=== PATIENT | female | born 2000 | race Caucasian/White ===

== ENCOUNTER 2019-04-19 10:26 | Emergency (ER) | payer OTHER ==
[2019-04-19 10:53] VITALS: BP 121/74
--- NOTE | 2019-04-19 11:46 | UC ---
Lower Extremity/Ankle HPI - HPI Summary HPI Summary: 18 year old with ankle pain . Pt rolled R ankle at [employer] practice last night. Ankle is swollen. Pt has been icing, elevating, and taking ibuprofen which helped with the pain. Exertion worsens Sx. - History of Current Complaint Chief Complaint: UCLowerExtremity Stated Complaint: RIGHT ANKLE INJURY Time Seen by Provider: 04/19/19 11:39 Hx Obtained From: Patient Hx Last Menstrual Period: 04/02/19 Onset/Duration: Sudden Onset Pain Intensity: 6 - Allergies/Home Medications Allergies/Adverse Reactions: Allergies Allergy/AdvReac Type Severity Reaction Status Date / Time No Known Allergies Allergy Verified 04/19/19 10:48 Home Medications: Home Medications Ibuprofen TAB* [Advil TAB*] 3 tab PO ONCE 04/19/19 [History Confirmed 04/19/19] Norethindrone/Eth Est 1.07/27NF [Junel .07/27 (NF)] 1 tab PO DAILY 04/19/19 [ History Confirmed 04/19/19] PMH/Surg Hx/FS Hx/Imm Hx Previously Healthy: Yes - Surgical History Surgical History: None - Family History Known Family History: Positive: None - Social History Occupation: Student Alcohol Use: Occasionally Substance Use Type: None Smoking Status (MU): Never Smoked Tobacco Type: eCigarettes Review of Systems All Other Systems Reviewed And Are Negative: Yes Musculoskeletal: Positive: Arthralgia, Decreased ROM, Edema Is Patient Immunocompromised?: No Physical Exam Triage Information Reviewed: Yes Appearance: Well-Appearing, No Pain Distress, Well-Nourished Vital Signs: Initial Vital Signs Temp 98.2 F 04/19/19 10:49 Pulse 94 04/19/19 10:49 Resp 20 04/19/19 10:49 BP 121/74 04/19/19 10:49 Pulse Ox 99 04/19/19 10:49 Vital Signs Reviewed: Yes Eyes: Positive: Conjunctiva Clear ENT: Negative: Hearing grossly normal Neck: Positive: 1 Respiratory Exam: Normal Cardiovascular Exam: Normal Abdominal Exam: Normal Musculoskeletal: Positive: ROM Limited @, Edema @ - right lateral ankle. minimal bruising with mild effusion. cap refill < 3 sec. peripheral pulses brsk. no homans sign. no high ankle pain Neurological Exam: Normal Psychological Exam: Normal Skin Exam: Normal Diagnostics - Radiology No standard instances Radiology Interpretation Completed By: Radiologist Summary of Radiographic Findings: negative for fx Lower Extremity Course/Dx - Course Course Of Treatment: no cheer for a week and go to [facility]hel[facility] fitness trainer / go to rehab - Differential Dx/Diagnosis Differential Diagnosis/HQI/PQRI: Cellulitis, Contusion, Fracture (Closed), Sprain, Strain Provider Diagnosis: Ankle sprain Discharge ED - Sign-Out/Discharge Documenting (check all that apply): Patient Departure All imaging exams completed and their final reports reviewed: Yes - Discharge Plan Condition: Good Disposition: HOME Patient Education Materials: Ankle Sprain (DC) Referrals: Brendan Hurst MD [Medical Doctor] - If Needed No Primary Care Phys,NOPCP [Primary Care Provider] - If Needed Additional Instructions: Please contact your medical management trainer for re hab and please take a week off from cheer/ sports - Billing Disposition and Condition Condition: GOOD Disposition: Home
== END 2019-04-19 12:09 | disposition home or self-care (01) ==
LOC: UCCORT 10:26
DX: S93.401A Sprain of unspecified ligament of right ankle, initial encounter (principal); X50.0XXA Overexertion from strenuous movement or load, initial encounter; Y92.9 Unspecified place or not applicable
CPT/HCPCS: 99202; G0463